=== PATIENT | female | born 1980 | race African-American/Black ===

== ENCOUNTER 2023-03-07 18:38 | Emergency (ER) | payer OTHER ==
[~2023-03-07] VITALS: Ht 170.2 cm; Wt 100.0 kg
[2023-03-07] MEDS ORDERED: LORAZEPAM 0.5MG TABLET PO ONE (22:15)
[2023-03-07] MEDS ORDERED: ACETAMINOPHEN 325MG TABLET PO ONE (22:15)
[2023-03-07 22:33] LABS: BASOPHILS % 0.5 % (0.0-2.0); EOSINOPHILS % 0.4 % (0.0-5.0); HEMATOCRIT. 40.5 % (36.0-48.0); HEMOGLOBIN. 13.3 g/dL (12.0-16.0); LYMPHOCYTES % 33.5 % (20.0-50.0); MEAN CORPUSCULAR VOLUME 88.1 fL (81.0-99.0); MEAN PLATELET VOLUME 8.5 fl (7.4-10.4); MONOCYTES % 3.2 % (2.0-8.0); NEUTROPHILS % 62.4 % (40.0-76.0); PLATELET 272 x1000/uL (130-400); RED BLOOD CELL COUNT 4.59 mill/uL (4.2-5.4); RED CELL DISTRIBUTION WIDTH 14.1 % (11.6-14.6)
[2023-03-07 22:39] LABS: CHLORIDE 103 mEq/L (98-107)
[2023-03-07 22:43] LABS: HCG SCREEN NEGATIVE
[2023-03-07] MEDS ORDERED: ACET-2708 MT (23:29)
[2023-03-07] MEDS ORDERED: CYCL10TA21 MT (23:29)
[2023-03-07 23:30] VITALS: BP 138/67
== END 2023-03-07 23:33 | disposition home or self-care (01) ==
LOC: ER 18:56
DX: R07.89 Other chest pain (principal); M54.9 Dorsalgia, unspecified
CPT/HCPCS: 36415; 71045; 80053; 81025; 84484; 84703; 85025; 93005; 99285